=== PATIENT | male | born 1945 | race Caucasian/White ===

== ENCOUNTER 2018-01-16 18:45 | Inpatient (IN) | payer SELFPAY ==
[2018-01-16 20:05] LABS: BASO # 0.02 K/mm3 (0.0-2.0); BASO % 0.2 % (0.0-3.0); EOS # 0.3 (0.0-0.7); EOS % 3.4 % (1.5-5.0); GRAN # 6.74 (1.4-6.5); GRAN % 66.9 % (50.0-68.0); HEMOGLOBIN 13.1 g/dL (14.0-18.0); LYMPH % 19.6 % (22.0-35.0); MEAN CELL VOLUME 75.5 fl (80.0-105.0); MEAN CORPUSCULAR HEMOGLOBIN 25.5 pg (25.0-35.0); MEAN CORPUSCULAR HGB CONC 33.8 g/dl (31.0-37.0); MEAN PLATELET VOLUME 9.3 fl (7.0-11.0); MONO % 9.9 % (1.0-6.0); RBC 5.14 10^6/uL (3.5-6.1); RED CELL DISTRIBUTION WIDTH 12.7 % (11.5-14.5); WHITE BLOOD COUNT 10.1 10^3/ul (4.5-11.0)
[2018-01-16 20:14] LABS: VENOUS BLOOD GAS BASE EXCESS 1.9 mmol/L (0.0-2.0); VENOUS BLOOD GAS PO2 39 mm/Hg (30-55); VENOUS BLOOD PH 7.42 (7.32-7.43)
[2018-01-16 20:16] LABS: ALBUMIN 3.7 g/dL (3.0-4.8); ALT/SGPT 35 U/L (7-56); AST/SGOT 23 U/L (17-59); BLOOD UREA NITROGEN 15 mg/dL (7-21); CALCIUM 8.8 mg/dL (8.4-10.5); GFR NON-AFRICAN AMERICAN > 60
[2018-01-16] MEDS ORDERED: cefTRIAXone 1 gm 1 GM/100 ML BAG IVPB STA (20:22)
[2018-01-16] MEDS ORDERED: Azithromycin 500MG/NS 250ml 500 MG/250 ML BAG IVPB STA (20:22)
[2018-01-16 20:27] LABS: B-TYPE NATRIURETIC PEPTIDE 217 pg/mL (0-450); TROPONIN I < 0.01 ng/mL
[2018-01-16] MEDS: Sodium Chloride 0.9% 1,000 ML IV SCH (20:56)
[2018-01-16] MEDS ORDERED: Iohexol 350 MG/100 ML VIAL ONE (21:18)
[2018-01-16 21:24] LABS: URINE APPEARANCE CLEAR (CLEAR); URINE BILIRUBIN NEGATIVE (NEGATIVE); URINE BLOOD TRACE-INTACT (NEGATIVE); URINE COLOR YELLOW (YELLOW); URINE GLUCOSE (UA) 100 mg/dL (NEGATIVE); URINE LEUKOCYTE ESTERASE NEGATIVE Leu/uL (NEGATIVE); URINE PROTEIN 30 mg/dL (<30 mg/dL)
[2018-01-16 21:26] LABS: URINE BACTERIA MANY (NEG); URINE WBC 0 - 2 /hpf (0-6)
[2018-01-16 21:27] LABS: URINE AMORPHOUS SEDIMENT FEW
[2018-01-16 23:00] LABS: VENOUS BLOOD GAS BASE EXCESS 0.3 mmol/L (0.0-2.0); VENOUS BLOOD GAS PO2 172 mm/Hg (30-55); VENOUS BLOOD PH 7.39 (7.32-7.43)
--- NOTE | 2018-01-16 23:03 | CT ---
EXAM: CT Angiography Chest With Intravenous Contrast CLINICAL HISTORY: 72 years old, male; Signs and symptoms; Other: Sepsis weakness; Additional info: R/O pe TECHNIQUE: Axial computed tomographic angiography images of the chest with intravenous contrast using pulmonary embolism protocol. All CT scans at this facility use one or more dose reduction techniques, viz.: automated exposure control; ma/kV adjustment per patient size (including targeted exams where dose is matched to indication; i.e. head); or iterative reconstruction technique. MIP reconstructed images were created and reviewed. Coronal and sagittal reformatted images were created and reviewed. CONTRAST: 100 mL of OMNI 350 administered intravenously. COMPARISON: DX - CHEST PORTABLE 2018-01-16 19:26 FINDINGS: Pulmonary arteries: Unremarkable. No pulmonary embolism. Aorta: No acute findings. No thoracic aortic aneurysm. Lungs: There is subpleural atelectasis of the dependent portions of the lungs. No focal consolidation. Pleural space: Unremarkable. No significant effusion. No pneumothorax. Heart: Coronary artery calcification. No cardiomegaly. No significant pericardial effusion. No evidence of RV dysfunction. Bones/joints: Degenerative changes thoracic spine. No acute fracture. No dislocation. Soft tissues: Unremarkable. Lymph nodes: Mildly prominent right paratracheal lymph node measures 11 x 11 mm. Gallbladder and bile ducts: A calcified gallstone is present. IMPRESSION: No pulmonary embolism. Dependent atelectasis. No focal consolidation. Gallstone.
--- NOTE | 2018-01-16 23:20 | ED PDOC ---
Arrival/HPI - General Chief Complaint: Weakness/Neurological Deficit Time Seen by Provider: 01/16/18 19:01 Historian: Patient - History of Present Illness Narrative History of Present Illness (Text): Patient is a 72 year old male who was sent by his PMD to Emergency department for sensation of weakness, shortness of breath, and a subjective fever for the past 3-4 days. Patient complains of pain to the top part of both his shoulders , mild nonproductive cough, decreased appetite, and general body aches. Patient denies any nausea, vomiting, sick contacts, recent traveling, or any other symptoms at this time. Time/Duration: < week Symptom Course: Worsening Quality: Aching Context: Home Past Medical History - Provider Review Nursing Documentation Reviewed: Yes - Infectious Disease Hx of Infectious Diseases: None - Psychiatric Hx Substance Use: No Family/Social History - Physician Review Nursing Documentation Reviewed: Yes Family/Social History: No Known Family HX Smoking Status: Never Smoked Hx Alcohol Use: No Hx Substance Use: No Allergies/Home Meds Allergies/Adverse Reactions: Allergies No Known Allergies Allergy (Verified 01/16/18 19:04) Home Medications: Home Meds Medication Instructions Recorded Confirmed Aspirin [Aspirin Chewable] 1 tab PO DAILY 01/16/18 01/16/18 GlipiZIDE [Glucotrol] 5 mg PO DAILY 01/16/18 01/16/18 Metformin HCl [Glucophage] 1 tab PO DAILY 01/16/18 01/16/18 Montelukast [Singulair] 1 tab PO DAILY 01/16/18 01/16/18 SITagliptin [Januvia] 100 mg PO DAILY 01/16/18 01/16/18 Review of Systems - Physician Review All systems were reviewed & negative as marked: Yes - Review of Systems Constitutional: Fevers Respiratory: Cough (mild). absent: Sputum Gastrointestinal: Appetite Changes (Decreased appetite). absent: Nausea, Vomiting Musculoskeletal: Arthralgias (shoulder), Other (General body aches) Physical Exam Vital Signs Reviewed: Yes Vital Signs Temp Pulse Resp BP Pulse Ox 01/17/18 01:24 98.9 F 90 18 109/70 99 01/17/18 00:09 98.2 F 83 18 120/69 97 01/16/18 20:40 99.9 F H 88 18 139/86 98 01/16/18 20:05 100.1 F H 01/16/18 19:53 100.1 F H 01/16/18 19:05 97.4 F L 105 H 18 130/78 96 Temperature: Afebrile Pulse: Tachycardic Respiratory Rate: Normal Appearance: Positive for: Well-Appearing Mental Status: Positive for: Alert and Oriented X 3 Finger Stick Blood Glucose: 242 - Systems Exam Head: Present: Atraumatic, Normocephalic Pupils: Present: PERRL Extroacular Muscles: Present: EOMI Conjunctiva: Present: Normal Mouth: Present: Dry (Mucous membranes slightly dry) Neck: Present: Normal Range of Motion Respiratory/Chest: Present: Clear to Auscultation, Good Air Exchange. No: Respiratory Distress, Accessory Muscle Use Cardiovascular: Present: Regular Rate and Rhythm, Normal S1, S2. No: Murmurs Abdomen: No: Tenderness, Distention, Peritoneal Signs Back: Present: Normal Inspection Upper Extremity: Present: Normal Inspection. No: Cyanosis, Edema Lower Extremity: Present: Normal Inspection. No: Edema Neurological: Present: GCS=15, CN II-XII Intact, Speech Normal Skin: Present: Warm, Dry, Normal Color. No: Rashes Psychiatric: Present: Alert, Oriented x 3, Normal Insight, Normal Concentration Medical Decision Making ED Course and Treatment: Impression: Patient is a 72 year old male complaining of sensation of weakness, shortness of breath, and fever over the past 3-4 days. Differential Diagnosis included but are not limited to: Sepsis vs pneumonia vs UTI Plan: --Tylenol --IV fluids -- Azithromycin --Blood gas --EKG --lab work --Chest X-ray --Blood, sputum, urine culture -- Reassess and disposition Prior Visits: Notes and results from previous visits were reviewed. Progress Notes: EKG shows NSR at 99 BPM with LAD and normal intervals. Interpreted by me. Chest X-ray shows questionable left lower lobe infiltrate. CT Angiography Chest With Intravenous Contrast: CONTRAST: 100 mL of OMNI 350 administered intravenously. IMPRESSION: No pulmonary embolism. Dependent atelectasis. No focal consolidation. Gallstone. Dictated and Authenticated by: Nakita Ha MD 01/16/2018 11:03 PM Eastern Time ([place] & [place]) Sepsis alert was called secondary to elevated lactate. Patient hemodynam stable. Uncertain of cardiac function and therefore will hold off on sepsis protocol fluid resuscitation. 01/16/18 23:00 Spoke to who reviewed the case and patient will be admitted to hospitalist service. Patient is stable in Emergency department and is on IV antibiotics infusing. - Critical Care Critical Care Minutes: 60 minutes - Lab Interpretations Lab Results: 01/16/18 19:43 01/16/18 19:43 Lab Results 01/16/18 22:48: pO2 172 H, VBG pH 7.39, VBG pCO2 42.0, VBG HCO3 25.4, VBG Total CO2 26.7, VBG O2 Sat (Calc) 99.5 H, VBG Base Excess 0.3, VBG Potassium 3.8, Sodium 136.0, Chloride 103.0, Glucose 174 H, Lactate 1.5, FiO2 21.0, Venous Blood Potassium 3.8 01/16/18 20:41: D-Dimer, Quantitative 585 H 01/16/18 20:30: Urine Color Yellow, Urine Appearance Clear, Urine pH 6.0, Ur Specific [place] 1.025, Urine Protein 30 H, Urine Glucose (UA) 100 H, Urine Ketones Trace H, Urine Blood Trace-intact H, Urine Nitrate Negative, Urine Bilirubin Negative, Urine Urobilinogen 1.0 H, Ur Leukocyte Esterase Negative, Urine RBC 2 - 5, Urine WBC 0 - 2, Ur Epithelial Cells None, Amorphous Sediment Few, Urine Bacteria Many 01/16/18 19:47: TSH 3rd Generation 1.04 01/16/18 19:43: Influenza Typ A,B (EIA) Negative for flu a/b 01/16/18 19:43: pO2 39, VBG pH 7.42, VBG pCO2 41.0, VBG HCO3 26.6, VBG Total CO2 27.9, VBG O2 Sat (Calc) 79.2 H, VBG Base Excess 1.9, VBG Potassium 3.7, Sodium 133.0, Chloride 100.0, Glucose 253 H, Lactate 2.3 H, FiO2 21.0, Venous Blood Potassium 3.7 01/16/18 19:43: Sodium 138, Chloride 100, Potassium 3.9, Carbon Dioxide 24, Anion Gap 17, BUN 15, Creatinine 0.9, Est GFR ( Amer) > 60, Est GFR (Non- Af Amer) > 60, Random Glucose 241 H, Calcium 8.8, Magnesium 1.8, Total Bilirubin 1.4 H, AST 23, ALT 35, Alkaline Phosphatase 55, Lactate Dehydrogenase 367, Total Creatine Kinase 42, Troponin I < 0.01, NT-Pro-B Natriuret Pep 217, Total Protein 7.4, Albumin 3.7, Globulin 3.7, Albumin/Globulin Ratio 1.0 L 01/16/18 19:43: WBC 10.1, RBC 5.14, Hgb 13.1 L, Hct 38.8 L, MCV 75.5 L, MCH 25.5 , MCHC 33.8, RDW 12.7, Plt Count 322, MPV 9.3, Gran % 66.9, Lymph % (Auto) 19.6 L, [place] % (Auto) 9.9 H, Eos % (Auto) 3.4, Baso % (Auto) 0.2, Gran # 6.74 H, Lymph # (Auto) 2.0, [place] # (Auto) 1.0 H, Eos # (Auto) 0.3, Baso # (Auto) 0.02 01/16/18 19:08: POC Glucose (mg/dL) 245 H I have reviewed the lab results: Yes - RAD Interpretation Radiology Orders: 01/16/18 19:10 CHEST PORTABLE [RAD] Stat 01/16/18 21:11 ANGIO CHEST PE PROTOCOL [CT] Stat Traffic Inspector: ED Physician, Radiologist - EKG Interpretation Interpreted by ED Physician: Yes Type: 12 lead EKG - Medication Orders Current Medication Orders: Acetaminophen (Tylenol 325mg Tab) 650 mg PO Q6H PRN PRN Reason: Pain, moderate (4-7) Aspirin (Aspirin Chewable) 81 mg PO DAILY [facility] Heparin Sodium (Porcine) (Heparin) 5,000 units SC Q8 CRISTIANO PRN Reason: Protocol Sodium Chloride (Sodium Chloride 0.9%) 1,000 mls @ 100 mls/hr IV .Q10H CRISTIANO Last Admin: 01/16/18 20:56 Dose: 100 mls/hr eMAR Start Stop Document 01/16/18 20:56 RG (Rec: 01/16/18 20:56 RG [id number]) Intravenous Solution Start Date 01/16/18 Start Time 20:56 Ceftriaxone Sodium (Rocephin 1 Gram Ivpb) 1 gm in 100 mls @ 100 mls/hr IVPB DAILY CRISTIANO PRN Reason: Protocol Stop: 01/19/18 10:00 Insulin Human Lispro (Humalog Low) 0 units SC ACHS CRISTIANO PRN Reason: Protocol Montelukast Sodium (Singulair) 10 mg PO DAILY CRISTIANO Pantoprazole Sodium (Protonix Ec Tab) 40 mg PO ACB CRISTIANO Discontinued Medications Acetaminophen (Tylenol 325mg Tab) 650 mg PO STAT STA Stop: 01/16/18 19:53 Last Admin: 01/16/18 20:05 Dose: 650 mg MAR Pain/Vitals Document 01/16/18 20:05 RG (Rec: 01/16/18 20:06 LUZ [id number]) Pain Reassessment Is This A Pain ReAssessment? No Vitals Temperature (97.6 F-99.6 F) 100.1 F Temperature Source Oral Ceftriaxone Sodium (Rocephin 1 Gram Ivpb) 1 gm in 100 mls @ 100 mls/hr IVPB STAT STA PRN Reason: Protocol Stop: 01/16/18 21:21 Last Admin: 01/16/18 20:50 Dose: 100 mls/hr eMAR Start Stop Document 01/16/18 20:50 RG (Rec: 01/16/18 20:56 RG [id number]) Intravenous Solution Start Date 01/16/18 Start Time 20:50 Azithromycin (Zithromax 500mg In Ns) 500 mg in 250 mls @ 167 mls/hr IVPB STAT STA PRN Reason: Protocol Stop: 01/16/18 21:51 Last Admin: 01/16/18 20:56 Dose: 167 mls/hr eMAR Start Stop Document 01/16/18 20:56 RG (Rec: 01/16/18 20:57 [id number]) Intravenous Solution Start Date 01/16/18 Start Time 20:56 - Scribe Statement The provider has reviewed the documentation as recorded by the Scribjocelyne Chambers Provider Scribe Attestation: All medical record entries made by the Scribe were at my direction and personally dictated by me. I have reviewed the chart and agree that the record accurately reflects my personal performance of the history, physical exam, medical decision making, and the department course for this patient. I have also personally directed, reviewed, and agree with the discharge instructions and disposition. Disposition/Present on Arrival - Present on Arrival Any Indicators Present on Arrival: No History of DVT/PE: No History of Uncontrolled Diabetes: No Urinary Catheter: No History of Decub. Ulcer: No History Surgical Site Infection Following: None - Disposition Have Diagnosis and Disposition been Completed?: Yes Diagnosis: UTI (urinary tract infection) Disposition: HOSPITALIZED Disposition Time: 23:10 Condition: STABLE
--- NOTE | 2018-01-17 02:06 | CP.PCM.HP ---
<Flaquito Michaud - Last Filed: 01/17/18 01:58> History of Present Illness - History of Present Illness History of Present Illness: CC: Body aches, fatigue HPI: 72 year old male with past medical history of asthma and DM2 who presents to [facility] [place] after being at his PMD Dr. Palmer complaining of general fatigue and body aches for the past 4 days. Patient indicates he has felt lousy the past few days, he denies nausea, vomiting, fever, chills, chest pain, shortness of breath, abdominal pain. Patient reports pain in his bilateral shoulders that has bothered him for the past week. He denies numbness or limited ROM with his shoulders. He indicates the pain is dull in nature. Patient reports being around sick contacts but unsure of their symptoms. Patient indicates some pain with urination. In ED patient was noted to have elevated lactate of 2.4, WBC of 10, stable H/H and tachycardia. Code sepsis was called on patient. Patient placed on IVF, repeat Lactate showed improvement. Patient was found to have elevated D-dimer, CTA was preformed and was negative. 12 point ROS benign other than mentioned in HPI PMH: DM2, Asthma PSH: Denies SOCHX: Denies tobacco, etoh, ID, lives with family, able to do ADL ALL: NKDA Meds: Januvia, Metformin, ASA, Singulair Present on Admission - Present on Admission Any Indicators Present on Admission: No Review of Systems - Review of Systems All systems: reviewed and no additional remarkable complaints except (as mentioned in HPI) Past Patient History - Infectious Disease Hx of Infectious Diseases: None - Past Social History Smoking Status: Never Smoked - PSYCHIATRIC Hx Substance Use: No Meds Allergies/Adverse Reactions: Allergies Allergy/AdvReac Type Severity Reaction Status Date / Time No Known Allergies Allergy Verified 01/16/18 19:04 Physical Exam - Constitutional Appears: Non-toxic - Head Exam Head Exam: ATRAUMATIC, NORMAL INSPECTION, NORMOCEPHALIC - Eye Exam Eye Exam: EOMI, PERRL - ENT Exam ENT Exam: Mucous Membranes Moist - Respiratory Exam Respiratory Exam: Clear to Auscultation Bilateral, NORMAL BREATHING PATTERN. absent: Rhonchi, Wheezes - Cardiovascular Exam Cardiovascular Exam: REGULAR RHYTHM, +S1, +S2 - GI/Abdominal Exam GI & Abdominal Exam: Normal Bowel Sounds, Soft. absent: Firm, Guarding, Rebound , Rigid, Tenderness - Extremities Exam Extremities exam: Positive for: normal capillary refill, pedal pulses present. Negative for: pedal edema - Neurological Exam Neurological exam: Alert, CN II-XII Intact, Normal Gait, Oriented x3 - Psychiatric Exam Psychiatric exam: Normal Mood - Skin Skin Exam: Dry, Warm Results - Vital Signs Recent Vital Signs: Last Vital Signs Temp 98.9 F 01/17/18 01:24 Pulse 90 01/17/18 01:24 Resp 18 01/17/18 01:24 BP 109/70 01/17/18 01:24 Pulse Ox 99 01/17/18 01:24 - Labs Result Diagrams: 01/16/18 19:43 01/16/18 19:43 Assessment & Plan - Assessment and Plan (Free Text) Assessment: 72 year old male with past medical history of asthma and DM2 who presents [place] [facility] [place] after being at his PMD Dr. Palmer complaining of general fatigue and body aches for the past 4 days. Patient was code sepsis in ED due to elevated Lactate and vital signs. Patient was given IV abx and fluids. Patient lactate improved after fluids. He is admitted for observation. Plan: Sepsis - SIRS criteria plus suspected infection of UTI v. Viral URI - IV antibiotics - IVF, NS @100 - Repeat Lactate improved with fluids - WBC 10, H/H stable, afebrile - Procal - CXR no acute disease - Manzanares culture f/u - Repeat VBG with shock panel in AM Elevated D-Dimer - Likely secondary to infection - CTA of chest negative for acute PE - f/u lower extremity duplex US DM2 - ISS-low - ACHS Hx of Asthma - Goal SaO2 >92% - stable at this time DVT ppx: SCD GI ppx: Protonix Case and plan discussed with attending - Date & Time Date: 01/17/18 Time: 02:08 <Carlos Lara MD - Last Filed: 01/17/18 06:24> Results - Vital Signs Recent Vital Signs: Last Vital Signs Temp 98.1 F 01/17/18 01:48 Pulse 94 H 01/17/18 01:48 Resp 18 01/17/18 01:48 BP 125/79 01/17/18 01:48 Pulse Ox 99 05/15/18 01:24 - Labs Result Diagrams: 01/16/18 19:43 01/16/18 19:43 Attending/Attestation - Attestation I have personally seen and examined this patient.: Yes I have fully participated in the care of the patient.: Yes I have reviewed all pertinent clinical information: Yes Notes (Text): -I agree with the above H&P completed by the resident physician with the following additions and/or changes: -The patient is a 72 year old man with a history of asthma and NIDDM, presents with 4 days of fatigue, generalized body aches and subjective fevers. In the ED , he had low-grade temps (Tmax-100.1) and an elevated D-dimer. However, CT- Angio ruled out PE. Urinalysis only shows evidence of bacteria and patient vaguely describes some intermittent dysuria. Therefore, he will be empirically treated with IV Ceftriaxone. Also, an abdominal U/S has been ordered to rule out acute cholecystitis (given presence of calcified gallstone noted incidentally on CT-angio). TSH, manzanares-cultures, repeat troponin and procalcitonin have also been ordered (as well as a BLE Doppler U/S), in search of the underlying cause for the patient's non-specific symptoms.
[2018-01-17] MEDS: Sodium Chloride 0.9% 1,000 ML IV SCH ×2 (06:08→17:17)
--- NOTE | 2018-01-17 06:17 | PCM.SEPTIC ---
<Flaquito Michaud - Last Filed: 01/17/18 06:17> Sepsis Progress Note - Reassessment Type Date of Evaluation: 01/17/18 Time of Evaluation: 00:15 Reassessment Type: Non-invasive reassessment - Non Invasive Reassessment Were the most recent vital sign reviewed: Yes Vital Sign (Latest): Temp Pulse Resp BP Pulse Ox 98.1 F 94 H 18 125/79 99 01/17/18 01:48 01/17/18 01:48 01/17/18 01:48 01/17/18 01:48 01/17/18 01:24 Cardiovascular: Yes: Regular Rate, Rhythm Respiratory: Yes: Normal Breath Sounds. No: Crackles, Rales Capillary Refill: Normal (Less than 2 sec) Skin: Warm, Dry <Ping Cedillo - Last Filed: 01/26/18 07:02> Sepsis Progress Note - Non Invasive Reassessment Vital Sign (Latest): Temp Pulse Resp BP Pulse Ox 98.4 F 88 18 121/67 97 01/18/18 10:50 01/18/18 08:24 01/18/18 08:24 01/18/18 08:24 01/18/18 08:24 Attending/Attestation - Attestation I have personally seen and examined this patient.: No I have fully participated in the care of the patient.: Yes I have reviewed all pertinent clinical information, including history, physical exam and plan: Yes
[2018-01-17 06:30] LABS: BASO # 0.02 K/mm3 (0.0-2.0); BASO % 0.2 % (0.0-3.0); EOS # 0.5 (0.0-0.7); GRAN # 6.32 (1.4-6.5); GRAN % 68.5 % (50.0-68.0); HEMOGLOBIN 12.8 g/dL (14.0-18.0); LYMPH # 1.6 (1.2-3.4); LYMPH % 16.9 % (22.0-35.0); MEAN CELL VOLUME 75.2 fl (80.0-105.0); MEAN CORPUSCULAR HGB CONC 33.2 g/dl (31.0-37.0); MEAN PLATELET VOLUME 9.3 fl (7.0-11.0); MONO # 0.9 (0.1-0.6); MONO % 9.4 % (1.0-6.0); RBC 5.12 10^6/uL (3.5-6.1); RED CELL DISTRIBUTION WIDTH 12.7 % (11.5-14.5); WHITE BLOOD COUNT 9.2 10^3/ul (4.5-11.0)
[2018-01-17 06:35] LABS: VENOUS BLOOD GAS PO2 49 mm/Hg (30-55); VENOUS BLOOD PH 7.45 (7.32-7.43)
[2018-01-17 06:39] LABS: ALBUMIN 3.4 g/dL (3.0-4.8); ALT/SGPT 29 U/L (7-56); AST/SGOT 21 U/L (17-59); BLOOD UREA NITROGEN 12 mg/dL (7-21); CALCIUM 8.4 mg/dL (8.4-10.5); GFR NON-AFRICAN AMERICAN > 60
[2018-01-17 06:53] LABS: INR 1.64 (0.93-1.08)
[2018-01-17] MEDS ORDERED: guaiFENesin DM 100 mg-10 mg/5 ml UD PO ONE (08:23)
[2018-01-17] MEDS: Pantoprazole 40 mg EC Tab PO SCH (08:24)
[2018-01-17] MEDS: Insulin Lispro (humaLOG) LOW Coverage SC SCH ×4 (08:24→21:44)
--- NOTE | 2018-01-17 08:53 | RAD ---
HISTORY: r/o infiltrate COMPARISON: No prior. FINDINGS: LUNGS: No active pulmonary disease. PLEURA: No significant pleural effusion identified, no pneumothorax apparent. CARDIOVASCULAR: Normal. OSSEOUS STRUCTURES: No significant abnormalities. VISUALIZED UPPER ABDOMEN: Normal. OTHER FINDINGS: None. IMPRESSION: No active disease.
[2018-01-17] MEDS: cefTRIAXone 1 gm 1 GM/100 ML BAG IVPB SCH (09:34)
[2018-01-17] MEDS ORDERED: Azithromycin 500MG/NS 250ml 500 MG/250 ML BAG IVPB SCH (10:00)
--- NOTE | 2018-01-17 10:58 | US ---
HISTORY: Evaluate for cholecystitis COMPARISON: None. TECHNIQUE: Sonographic evaluation of the abdomen. FINDINGS: LIVER: Measures 19.2 cm. Increased echogenicity of the liver parenchyma. No mass. No intrahepatic bile duct dilatation. GALLBLADDER: Small stones. No evidence of cholecystitis COMMON BILE DUCT: Measures 5 mm. No stones. No dilatation. PANCREAS: Not visualized due to bowel gas RIGHT KIDNEY: Measures 11.6 x 5.6 x 5.2cm. Normal echogenicity. No calculus, mass, or hydronephrosis. LEFT KIDNEY: Measures 13.5 x 4.9 x 4.5cm. Normal echogenicity. No calculus, mass, or hydronephrosis. SPLEEN: Normal in size and contour. No mass. 12.6 x 5.5 x 4.5 AORTA: No aneurysmal dilatation. IVC: Unremarkable. OTHER FINDINGS: None. IMPRESSION: Small gallstones. Fatty infiltration of the liver
[2018-01-17] MEDS: guaiFENesin DM 100 mg-10 mg/5 ml UD PO PRN ×2 (12:36→17:17)
--- NOTE | 2018-01-17 15:06 | CARD ---
APPROVED REPORT EKG Measurement Heart [id number] DC [id number] <Conclusion> Normal sinus rhythm Normal ECG
[2018-01-17 16:13] VITALS: RESP 18
--- NOTE | 2018-01-17 18:13 | US ---
HISTORY: Leg pain and swelling. Evaluate for DVT PHYSICIAN(S): Mehran Hernandez MD. TECHNIQUE: Duplex sonography and color-flow Doppler with graded compression were used to evaluate the deep venous systems of both lower extremities. FINDINGS: The visualized deep venous systems of both lower extremities are sonographically normal and compressible. Normal wave forms and augmentation are seen. There is no sonographic evidence for deep venous thrombosis in the visualized segments of both lower extremities. IMPRESSION: No sonographic evidence for deep venous thrombosis in the visualized segments of both lower extremities.
[2018-01-17 19:34] LABS: PH,URINE 6.5 (4.7-8.0); URINE BILIRUBIN NEGATIVE (NEGATIVE); URINE BLOOD NEGATIVE (NEGATIVE); URINE GLUCOSE (UA) NEGATIVE (NEGATIVE); URINE LEUKOCYTE ESTERASE NEGATIVE Leu/uL (NEGATIVE); URINE PROTEIN NEGATIVE mg/dL (<30 mg/dL)
[2018-01-17 20:07] LABS: URINE APPEARANCE CLEAR (CLEAR); URINE COLOR YELLOW (YELLOW)
[2018-01-18] MEDS: Sodium Chloride 0.9% 1,000 ML IV SCH (02:30)
[2018-01-18] MEDS: guaiFENesin DM 100 mg-10 mg/5 ml UD PO PRN ×2 (05:30→10:00)
[2018-01-18 06:35] LABS: BASO # 0.01 K/mm3 (0.0-2.0); BASO % 0.1 % (0.0-3.0); EOS # 0.5 (0.0-0.7); EOS % 5.2 % (1.5-5.0); GRAN # 6.39 (1.4-6.5); GRAN % 62.1 % (50.0-68.0); HEMOGLOBIN 11.3 g/dL (14.0-18.0); LYMPH % 19.6 % (22.0-35.0); MEAN CELL VOLUME 75.2 fl (80.0-105.0); MEAN CORPUSCULAR HEMOGLOBIN 24.6 pg (25.0-35.0); MEAN CORPUSCULAR HGB CONC 32.7 g/dl (31.0-37.0); MEAN PLATELET VOLUME 9.4 fl (7.0-11.0); MONO # 1.3 (0.1-0.6); RBC 4.6 10^6/uL (3.5-6.1); RED CELL DISTRIBUTION WIDTH 12.7 % (11.5-14.5); WHITE BLOOD COUNT 10.3 10^3/ul (4.5-11.0)
[2018-01-18 07:20] LABS: ALB/GLOB RATIO 0.9 (1.1-1.8); ALT/SGPT 33 U/L (7-56); AST/SGOT 30 U/L (17-59); BLOOD UREA NITROGEN 13 mg/dL (7-21); CALCIUM 7.9 mg/dL (8.4-10.5); GFR NON-AFRICAN AMERICAN > 60
[2018-01-18] MEDS: Insulin Lispro (humaLOG) LOW Coverage SC SCH ×2 (08:18→11:49)
[2018-01-18] MEDS: Pantoprazole 40 mg EC Tab PO SCH (08:18)
[2018-01-18 08:25] VITALS: BP 121/67; PULSE 88; O2SAT 97
[2018-01-18] MEDS: cefTRIAXone 1 gm 1 GM/100 ML BAG IVPB SCH (10:00)
[2018-01-18 10:51] VITALS: TEMP 98.4
--- NOTE | 2018-01-18 12:35 | CP.PCM.DIS ---
<To Matthew - Last Filed: 01/18/18 14:45> Provider - Provider Date of Admission: 01/17/18 10:33 Attending physician: Paramjit Marte MD Primary care physician: Kim Palmer MD Time Spent in preparation of Discharge (in minutes): 36 Hospital Course - Lab Results Lab Results: Most Recent Lab Values WBC 10.3 10^3/ul (4.5-11.0) 01/18/18 06:00 RBC 4.60 10^6/uL (3.5-6.1) 01/18/18 06:00 Hgb 11.3 g/dL (14.0-18.0) L 01/18/18 06:00 Hct 34.6 % (42.0-52.0) L 01/18/18 06:00 MCV 75.2 fl (80.0-105.0) L 01/18/18 06:00 MCH 24.6 pg (25.0-35.0) L 01/18/18 06:00 MCHC 32.7 g/dl (31.0-37.0) 01/18/18 06:00 RDW 12.7 % (11.5-14.5) 01/18/18 06:00 Plt Count 312 10^3/uL (120.0-450.0) 01/18/18 06:00 MPV 9.4 fl (7.0-11.0) 01/18/18 06:00 Gran % 62.1 % (50.0-68.0) 01/18/18 06:00 Lymph % (Auto) 19.6 % (22.0-35.0) L 01/18/18 06:00 [place] % (Auto) 13.0 % (1.0-6.0) H 01/18/18 06:00 Eos % (Auto) 5.2 % (1.5-5.0) H 01/18/18 06:00 Baso % (Auto) 0.1 % (0.0-3.0) 01/18/18 06:00 Gran # 6.39 (1.4-6.5) 01/18/18 06:00 Lymph # (Auto) 2.0 (1.2-3.4) 01/18/18 06:00 [place] # (Auto) 1.3 (0.1-0.6) H 01/18/18 06:00 Eos # (Auto) 0.5 (0.0-0.7) 01/18/18 06:00 Baso # (Auto) 0.01 K/mm3 (0.0-2.0) 01/18/18 06:00 ESR 60 mm/hr (0.00-15.0) H 01/17/18 06:00 PT 19.0 SECONDS (9.4-12.5) H 01/17/18 06:00 INR 1.64 (0.93-1.08) H 01/17/18 06:00 D-Dimer, Quantitative 585 ng/mL (0-243) H 01/16/18 20:41 pO2 49 mm/Hg (30-55) 01/17/18 06:00 VBG pH 7.45 (7.32-7.43) H 01/17/18 06:00 VBG pCO2 39.0 (40-60) L 01/17/18 06:00 VBG HCO3 27.1 mmol/l (21-28) 01/17/18 06:00 VBG Total CO2 28.3 mmol.L (22-28) H 01/17/18 06:00 VBG O2 Sat (Calc) 90.3 % (40-65) H 01/17/18 06:00 VBG Base Excess 3.0 mmol/L (0.0-2.0) H 01/17/18 06:00 VBG Potassium 3.8 mmol/L (3.6-5.2) 01/17/18 06:00 Sodium 134.0 mmol/L (132-148) 01/17/18 06:00 Chloride 101.0 mmol/L (98-107) 01/17/18 06:00 Glucose 244 mg/dl (75-110) H 01/17/18 06:00 Lactate 1.3 mmol/L (0.7-2.1) 01/17/18 06:00 FiO2 21.0 % 01/17/18 06:00 Sodium 137 mmol/L (132-148) 01/18/18 06:00 Potassium 3.8 mmol/L (3.6-5.0) 01/18/18 06:00 Chloride 102 mmol/L (98-107) 01/18/18 06:00 Carbon Dioxide 25 mmol/L (21-33) 01/18/18 06:00 Anion Gap 14 (10-20) 01/18/18 06:00 BUN 13 mg/dL (7-21) 01/18/18 06:00 Creatinine 0.9 mg/dl (0.8-1.5) 01/18/18 06:00 Est GFR ( Amer) > 60 01/18/18 06:00 Est GFR (Non-Af Amer) > 60 01/18/18 06:00 POC Glucose (mg/dL) 249 mg/dL (65-110) H 01/18/18 11:07 Random Glucose 236 mg/dL (70-110) H 01/18/18 06:00 Calcium 7.9 mg/dL (8.4-10.5) L 01/18/18 06:00 Magnesium 1.8 mg/dL (1.7-2.2) 01/16/18 19:43 Total Bilirubin 1.2 mg/dL (0.2-1.3) 01/18/18 06:00 AST 30 U/L (17-59) 01/18/18 06:00 ALT 33 U/L (7-56) 01/18/18 06:00 Alkaline Phosphatase 54 U/L (38-126) 01/18/18 06:00 Lactate Dehydrogenase 367 U/L (333-699) 01/16/18 19:43 Total Creatine Kinase 42 U/L (35-230) 01/16/18 19:43 Troponin I < 0.01 ng/mL 01/17/18 06:00 NT-Pro-B Natriuret Pep 217 pg/mL (0-450) 01/16/18 19:43 Total Protein 6.2 g/dL (5.8-8.3) 01/18/18 06:00 Albumin 3.0 g/dL (3.0-4.8) 01/18/18 06:00 Globulin 3.2 gm/dL 01/18/18 06:00 Albumin/Globulin Ratio 0.9 (1.1-1.8) L 01/18/18 06:00 Procalcitonin 0.10 NG/ML (0.19-0.49) L 01/16/18 19:47 TSH 3rd Generation 1.04 mIU/mL (0.46-4.68) 01/16/18 19:47 Venous Blood Potassium 3.8 mmol/L (3.6-5.2) 01/17/18 06:00 Urine Color Yellow (YELLOW) 01/17/18 19:25 Urine Appearance Clear (CLEAR) 01/17/18 19:25 Urine pH 6.5 (4.7-8.0) 01/17/18 19:25 Ur Specific [place] 1.015 (1.005-1.035) 01/17/18 19:25 Urine Protein Negative mg/dL (<30 mg/dL) 01/17/18 19:25 Urine Glucose (UA) Negative mg/dL (NEGATIVE) 01/17/18 19: Urine Ketones Negative mg/dL (NEGATIVE) 01/17/18 19:25 Urine Blood Negative (NEGATIVE) 01/17/18 19:25 Urine Nitrate Negative (NEGATIVE) 01/17/18 19:25 Urine Bilirubin Negative (NEGATIVE) 01/17/18 19:25 Urine Urobilinogen 2.0 E.U./dL (<1 E.U./dL) H 01/17/18 19:25 Ur Leukocyte Esterase Negative [place]/uL (NEGATIVE) 01/17/18 19:25 Urine RBC 2 - 5 /hpf (0-2) 01/16/18 20:30 Urine WBC 0 - 2 /hpf (0-6) 01/16/18 20:30 Ur Epithelial Cells None /hpf (0-5) 01/16/18 20:30 Amorphous Sediment Few 01/16/18 20:30 Urine Bacteria Many (NEG) 01/16/18 20:30 Influenza Typ A,B (EIA) Negative for flu a/b (NEGATIVE) 01/16/18 19:43 - Hospital Course Hospital Course: 72 year old male with past medical history of asthma and DM2 who presents to [facility] ED after being at his PMD Dr. Palmer complaining of general fatigue and body aches for the past 4 days. Patient indicates he has felt lousy the past few days, he denies nausea, vomiting, fever, chills, chest pain, shortness of breath, abdominal pain. Patient reports pain in his bilateral shoulders that has bothered him for the past week. He denies numbness or limited ROM with his shoulders. He indicates the pain is dull in nature. Patient reports being around sick contacts but unsure of their symptoms. Patient indicates some pain with urination. In ED patient was noted to have elevated lactate of 2.4, WBC of 10, stable H/H and tachycardia. Code sepsis was called on patient. Patient placed on IVF, repeat Lactate showed improvement. Patient was found to have elevated D-dimer, CTA was peformed and were negative. US of the lower extremity showed no sonographic evidence of a DVT. The patient was admitted and started on Rocephin and Zithromax. There was an isolated rise in the patient's bilirubin that downtrended. He had low-grade fevers that responded to Tylenol. He remained afebrile in the last 24 hours; procalcitonin, blood culture, and urine cultures were negative. Abdominal US showed a small gallstone with no evidence of cholecystitis and fatty infiltration of the liver. He was advised that he likely experienced a viral infection given his low-grade fever, body aches, joint aches, and cough. He was discharged with Azithromycin, to complete a five day course, cough supressant/ mucolytic, and a probiotic to prevent any diarrheal illness related to antibiotic use. He was discharged with the below written instructions and recommendations. - Date & Time of H&P Date of H&P: 01/18/18 Time of H&P: 14:41 Discharge Exam - Head Exam Head Exam: ATRAUMATIC, NORMAL INSPECTION, NORMOCEPHALIC - Eye Exam Eye Exam: EOMI, Normal appearance - ENT Exam ENT Exam: Mucous Membranes Moist, Normal Oropharynx - Cardiovascular Exam Cardiovascular Exam: RRR, +S1, +S2 - GI/Abdominal Exam GI & Abdominal Exam: Normal Bowel Sounds. absent: Guarding - Extremities Exam Extremities exam: normal inspection - Neurological Exam Neurological exam: Alert, CN II-XII Intact, Oriented x3 - Psychiatric Exam Psychiatric exam: Normal Affect, Normal Mood - Skin Skin Exam: Dry, Intact, Normal Color, Warm Discharge Plan - Discharge Medications Prescriptions: Azithromycin [Zithromax] 250 mg PO DAILY #3 tab Guaifenesin [Mucinex] 600 mg PO Q12H PRN #14 tab.er.12h PRN Reason: Cough Lactobacillus Acidophilus [Acidophilus Lactobacilli] 1 each PO DAILY #5 capsule - Follow Up Plan Condition: STABLE Disposition: HOME/ ROUTINE Instructions: Bacterial Upper Respiratory Infection, Adult (DC), Urinary Tract Infection in Men (DC) Additional Instructions: 1) Patient to take any medications as directed, unless otherwise indicated. 2) Patient to follow up with Primary Medical Doctor within one week. 3) Patient to drink plenty of fluids and take Tylenol or Advil as needed for fever and pain. Referrals: Kim Palmer MD [Primary Care Provider] - <Paramjit Marte - Last Filed: 01/18/18 16:33> Provider - Provider Date of Admission: 01/17/18 10:33 Attending physician: Paramjit Marte MD Primary care physician: Kim Palmer MD Hospital Course - Lab Results Lab Results: Most Recent Lab Values WBC 10.3 10^3/ul (4.5-11.0) 01/18/18 06:00 RBC 4.60 10^6/uL (3.5-6.1) 01/18/18 06:00 Hgb 11.3 g/dL (14.0-18.0) L 01/18/18 06:00 Hct 34.6 % (42.0-52.0) L 01/18/18 06:00 MCV 75.2 fl (80.0-105.0) L 01/18/18 06:00 MCH 24.6 pg (25.0-35.0) L 01/18/18 06:00 MCHC 32.7 g/dl (31.0-37.0) 01/18/18 06:00 RDW 12.7 % (11.5-14.5) 01/18/18 06:00 Plt Count 312 10^3/uL (120.0-450.0) 01/18/18 06:00 MPV 9.4 fl (7.0-11.0) 01/18/18 06:00 Gran % 62.1 % (50.0-68.0) 01/18/18 06:00 Lymph % (Auto) 19.6 % (22.0-35.0) L 01/18/18 06:00 [place] % (Auto) 13.0 % (1.0-6.0) H 01/18/18 06:00 Eos % (Auto) 5.2 % (1.5-5.0) H 01/18/18 06:00 Baso % (Auto) 0.1 % (0.0-3.0) 01/18/18 06:00 Gran # 6.39 (1.4-6.5) 01/18/18 06:00 Lymph # (Auto) 2.0 (1.2-3.4) 01/18/18 06:00 [place] # (Auto) 1.3 (0.1-0.6) H 01/18/18 06:00 Eos # (Auto) 0.5 (0.0-0.7) 01/18/18 06:00 Baso # (Auto) 0.01 K/mm3 (0.0-2.0) 01/18/18 06:00 ESR 60 mm/hr (0.00-15.0) H 01/17/18 06:00 PT 19.0 SECONDS (9.4-12.5) H 01/17/18 06:00 INR 1.64 (0.93-1.08) H 01/17/18 06:00 D-Dimer, Quantitative 585 ng/mL (0-243) H 01/16/18 20:41 pO2 49 mm/Hg (30-55) 01/17/18 06:00 VBG pH 7.45 (7.32-7.43) H 01/17/18 06:00 VBG pCO2 39.0 (40-60) L 01/17/18 06:00 VBG HCO3 27.1 mmol/l (21-28) 01/17/18 06:00 VBG Total CO2 28.3 mmol.L (22-28) H 01/17/18 06:00 VBG O2 Sat (Calc) 90.3 % (40-65) H 01/17/18 06:00 VBG Base Excess 3.0 mmol/L (0.0-2.0) H 01/17/18 06:00 VBG Potassium 3.8 mmol/L (3.6-5.2) 01/17/18 06:00 Sodium 134.0 mmol/L (132-148) 01/17/18 06:00 Chloride 101.0 mmol/L (98-107) 01/17/18 06:00 Glucose 244 mg/dl (75-110) H 01/17/18 06:00 Lactate 1.3 mmol/L (0.7-2.1) 01/17/18 06:00 FiO2 21.0 % 01/17/18 06:00 Sodium 137 mmol/L (132-148) 01/18/18 06:00 Potassium 3.8 mmol/L (3.6-5.0) 01/18/18 06:00 Chloride 102 mmol/L (98-107) 01/18/18 06:00 Carbon Dioxide 25 mmol/L (21-33) 01/18/18 06:00 Anion Gap 14 (10-20) 01/18/18 06:00 BUN 13 mg/dL (7-21) 01/18/18 06:00 Creatinine 0.9 mg/dl (0.8-1.5) 01/18/18 06:00 Est GFR ( Amer) > 60 01/18/18 06:00 Est GFR (Non-Af Amer) > 60 01/18/18 06:00 POC Glucose (mg/dL) 249 mg/dL (65-110) H 01/18/18 11:07 Random Glucose 236 mg/dL (70-110) H 01/18/18 06:00 Calcium 7.9 mg/dL (8.4-10.5) L 01/18/18 06:00 Magnesium 1.8 mg/dL (1.7-2.2) 01/16/18 19:43 Total Bilirubin 1.2 mg/dL (0.2-1.3) 01/18/18 06:00 AST 30 U/L (17-59) 01/18/18 06:00 ALT 33 U/L (7-56) 01/18/18 06:00 Alkaline Phosphatase 54 U/L (38-126) 01/18/18 06:00 Lactate Dehydrogenase 367 U/L (333-699) 01/16/18 19:43 Total Creatine Kinase 42 U/L (35-230) 01/16/18 19:43 Troponin I < 0.01 ng/mL 01/17/18 06:00 NT-Pro-B Natriuret Pep 217 pg/mL (0-450) 01/16/18 19:43 Total Protein 6.2 g/dL (5.8-8.3) 01/18/18 06:00 Albumin 3.0 g/dL (3.0-4.8) 01/18/18 06:00 Globulin 3.2 gm/dL 01/18/18 06:00 Albumin/Globulin Ratio 0.9 (1.1-1.8) L 01/18/18 06:00 Procalcitonin 0.10 NG/ML (0.19-0.49) L 01/16/18 19:47 TSH 3rd Generation 1.04 mIU/mL (0.46-4.68) 01/16/18 19:47 Venous Blood Potassium 3.8 mmol/L (3.6-5.2) 01/17/18 06:00 Urine Color Yellow (YELLOW) 01/17/18 19:25 Urine Appearance Clear (CLEAR) 01/17/18 19: Urine pH 6.5 (4.7-8.0) 01/17/18 19:25 Ur Specific [place] 1.015 (1.005-1.035) 01/17/18 19:25 Urine Protein Negative mg/dL (<30 mg/dL) 01/17/18 19:25 Urine Glucose (UA) Negative mg/dL (NEGATIVE) 01/17/18 19:25 Urine Ketones Negative mg/dL (NEGATIVE) 01/17/18 19:25 Urine Blood Negative (NEGATIVE) 01/17/18 19:25 Urine Nitrate Negative (NEGATIVE) 01/17/18 19:25 Urine Bilirubin Negative (NEGATIVE) 01/17/18 19:25 Urine Urobilinogen 2.0 E.U./dL (<1 E.U./dL) H 01/17/18 19:25 Ur Leukocyte Esterase Negative [place]/uL (NEGATIVE) 01/17/18 19:25 Urine RBC 2 - 5 /hpf (0-2) 01/16/18 20:30 Urine WBC 0 - 2 /hpf (0-6) 01/16/18 20:30 Ur Epithelial Cells None /hpf (0-5) 01/16/18 20:30 Amorphous Sediment Few 01/16/18 20:30 Urine Bacteria Many (NEG) 01/16/18 20:30 Influenza Typ A,B (EIA) Negative for flu a/b (NEGATIVE) 01/16/18 19:43 Attending/Attestation - Attestation I have personally seen and examined this patient.: Yes I have fully participated in the care of the patient.: Yes I have reviewed all pertinent clinical information, including history, physical exam and plan: Yes Notes (Text): 01/18/18 16:30 Medical record note made by the resident after discussion with my direction and input after the patient was personally seen and examined by me. I have reviewed the chart and agree that the record accurately reflects by personal performance of the history, physical exam, data review, and medical decision-making, in the course for the patient. I have also personally directed the plan of care. 72 year old male with past medical history of asthma and DM2 was admitted with low grade fever and generalized weakness.Patient work up is negative . blood cultures are negative for any growth.Procalcitonin level is normal.Patient is afebrile today.His symptoms are likely due t viral syndrome.He will be discharged home and will follow up with PCP. Management plan was discussed in detail with patient and family. Education was provided.
== END 2018-01-18 14:13 | disposition home or self-care (01) | DRG 866 ==
LOC: ED 18:45 → ERH 23:14 → 3RNO 01-17 01:43 → OBSVTOIN 01-17 10:33
PROVIDERS: ADMIT Internal Medicine; ATTEND Internal Medicine
DX: B34.9 Viral infection, unspecified (principal); N39.0 Urinary tract infection, site not specified; J98.11 Atelectasis; E11.9 Type 2 diabetes mellitus without complications; J45.909 Unspecified asthma, uncomplicated; K80.20 Calculus of gallbladder without cholecystitis without obstruction; Z79.82 Long term (current) use of aspirin; R40.2412 Glasgow coma scale score 13-15, at arrival to emergency department; R91.8 Other nonspecific abnormal finding of lung field